=== PATIENT | female | born 1955 | race Caucasian/White ===

== ENCOUNTER 2024-07-24 14:06 | Inpatient (IN) | payer OTHER, MEDICARE, SELFPAY ==
[2024-07-24] VITALS (16 sets, daily range): BP systolic 120–149; BP diastolic 51–93; BMI 30.4
--- NOTE | 2024-07-24 10:46 | ED.GENMED ---
History of Present Illness
General
Chief Complaint: Chest Pain
Source: patient
Exam Limitations: none
Time Seen by Provider: 07/24/24 10:45
History of Present Illness
History of Present Illness:
68-year-old female relatively sudden onset of chest pain to the neck and arms. Started at 9 AM. Was in her kitchen. Was severe at that time. Had a brief episode days ago that lasted 5 minutes. Some nausea and shortness of breath with it.
Symptoms have mostly resolved. She did take a full aspirin at home. Currently near asymptomatic
Past History
Past History
ED Past Medical History: CVA, Hypercholesterolemia and Hypothyroidism
ED Past Surgical History: Orthopedic
Social History
Tobacco: Non-smoker
Alcohol: None
Drug: None
Living: with family
Review of Systems
Review of Systems
All Other Systems: Not applicable
Constitutional: Denies fever or chills
Cardiac: Denies syncope
ABD/GI: Denies abdominal pain
Phy Exam
Physical Exam
Physical Exam:
GENERAL: Alert and oriented in no apparent distress
EYE: Orbits normal.
NECK: Supple, no significant adenopathy.
ENT: Pharynx without erythema
CARDIAC: Regular rate and rhythm without any obvious murmurs.
LUNGS: Clear breath sounds,normal
ABDOMEN: Soft, without focal tenderness or distention
NEUROLOGICAL: Alert and oriented , grossly non-focal
SKIN: Warm and dry, no rash or lesion, no discoloration, skin intact.
MUSCULOSKELETAL: No edema,no deformity.Good color
PSYCH: Normal and appropriate interaction.
Scores
Heart Score for Chest Pain Patients
STEMI patient?: No
History: Highly Suspicious
ECG: Significant ST-Depression
Age: >/= 65 years
Risk Factors: 1 or 2 Risk Factors
Troponin: </= Normal Limit
Heart Score for Chest Pain Patients: 7
Heart Score Risk: 72.7 % MACE over next 6 weeks
Course
Orders/Labs/Results
Orders:
Orders
07/24/24
Electrocardiogram (*1) Stat
Comment: ALREAY DONE
07/24/24 10:17
Electrocardiogram (*1) Urgent
Reason for Study: Chest Pain
EKG- Treatment ONCE
07/24/24 10:47
Cardiac Monitoring- Treatment ONCE
IV Insert/Care/Rem.- Treatment PRN
Pulse Ox/cont/shift [RESP] Stat
Quantity: 1
07/24/24 10:53
EKG [Electrocardiogram (*1)] Urgent
Reason for Study: Chest Pain
EKG- Treatment ONCE
07/24/24 10:54
CR Chest Portable - 1 View Urgent
Comment:
Reason For Exam: cp
Reason Study Needs to be Portable: Patient Unstable
07/24/24 11:10
PTT Urgent
Comment: Obtain baseline before beginning heparin infusion if not already collected
07/24/24 11:14
Complete Blood Count/With Diff Urgent
Comprehensive Metabolic Panel Urgent
Lipase Urgent
Troponin I Urgent
07/24/24 11:50
Heparin 4,000 units IV NOW STA
07/24/24 11:[address] Non Medication Order As Directed
Physician Order: PTT 6 hours after initial start of Heparin infusion
Above order entered?: Yes
07/24/24 12:00
Heparin 19611 Units/250 ml 25,000 units in 250 ml IV PER PROTOCOL
Weight to be used for heparin protocol in kilograms (kg):: 75.296
Protocol:: Cardiac Tx/Acute Coronary
PTT Goal Range to be used:: PTT 73 to 111 seconds
Order type:: Initial
INITIAL Infusion Dose (UNITS/KG/hr) & then follow protocol:: 12 units/kg/hr
Infusion Dose in UNITS/hr & then follow protocol (UNITS/hr):: 900
INFUSION RATE in mL/hr & then follow protocol (mL/hr):: 9
PTT less than or equal to 64 seconds:: Increase rate by 200 units/hr (+ 2 mL/hr)
PTT 64.1 to 72.9 seconds:: Increase rate by 100 units/hr (+ 1 mL/hr)
PTT 73 to 111 seconds:: Target Range. No change in rate.
PTT 111.1 to 130.9 seconds:: Decrease rate by 100 units/hr (- 1 mL/hr)
PTT 131 to 199.9 seconds:: HOLD for 1 hr. Then decrease rate by 200 units/hr (- 2 mL/hr)
PTT greater than or equal to 200 seconds:: HOLD for 2 hrs & Notify Provider. Then decrease by 200 units/hr (-
2 mL/hr)
Lab follow-up:: Each change, PTT q6h until 2 consecutive are therapeutic. Then PTT
daily.
07/24/24 12:39
Echo 2D MMode Color/Doppler Urgent
Reason for Study: CP
07/24/24 12:58
Admit/Transfer Patient As Directed
Co-Sign Provider:
Level of Care: Inpatient admission
Assign to:: IVU
Physician / Group: Mirsky/Hospitalist
Diagnosis: Acute Coronary Syndrome
Reason for Hospitalization: Unstable Angina
Expected length of stay greater than two midnights?: Yes
ELOS- Estimated Length of Stay in days: 3
I certify the patient meets the requirements for IP care: Yes
PRN Pain Medication Management As Directed
May give lesser potent ordered pain med per pt: Yes
preference::
Protocol:: Medication orders for pain may be administered in a
manner that supports deferring to patient preference
when the pt is:
- Requesting an ordered lesser potent pain medication.
Least to most potent pain medications are defined
as: acetaminophen < NSAID < tramadol < opioids
(morphine, oxycodone, hydromorphone).
- Requesting a lesser dose of the same medication IF
ORDERED.
- Requesting a less intrusive route of administration
if both routes are prescribed by the provider (PO <
IV).
07/24/24 13:02
Code Status As Directed
Resuscitation Status: Full Code
07/24/24 18:10
PTT Urgent
Abnormal Lab Results
07/24/24
11:14
Hgb 17.2 H g/dL
(12.0-16.0)
Hct 48.5 H %
(37.0-47.0)
MCH 32.6 H pg
(27.0-31.0)
Absolute Lymphs (auto) 1.1 L 10^3/uL
(1.2-3.4)
Absolute Monos (auto) 1.1 H 10^3/uL
(0.1-0.6)
Lymphocytes % 15.2 L %
(20.5-51.1)
Monocytes % 15.5 H %
(1.7-9.3)
BUN 23 H mg/dl
(7-17)
Glucose 156 H mg/dl
(70-99)
AST 100 H U/L
(14-36)
ALT 106 H U/L
(0-35)
Alkaline Phosphatase 145 H U/L
(38-126)
07/24/24 11:14
07/24/24 11:14
Vital Signs
Initial and Last Documented VS:
Initial Vital Signs
Temp Pulse Resp BP Pulse Ox
97.8 F 86 18 149/93 99
07/24/24 10:26 07/24/24 10:26 07/24/24 10:26 07/24/24 10:26 07/24/24 10:26
Last Documented Vital Signs
Temp Pulse Resp BP Pulse Ox
98.2 F 93 13 130/78 96
07/24/24 14:21 07/24/24 14:00 07/24/24 14:00 07/24/24 14:00 07/24/24 14:00
MDM/Problems Addressed
Differential Diagnosis Includes:
Patient symptoms are fairly concerning for cardiac ischemia. EKG done during symptoms has some inferior lateral changes. Now that she is essentially asymptomatic EKG was repeated and is normalized. Warrants admission and cardiac involvement.
They were contacted. Highly doubt pulmonary emboli or dissection
*Pulse Oximetry
Patient hypoxic: no
*EKG
Interpreted by ED Provider?: Yes
Interpretation: abnormal
Comparison EKG: changes noted
Heart Rate: 86
Rate: normal
Rhythm: sinus
[place]: normal axis
Interval: normal interval
QRS Pattern: normal QRS
Ischemia: T-wave inversion
*Critical Care Note
Total Time (30-74mins, 75-104mins- exclusive of procedures): Not Applicable
Data Reviewed
Review of Other/Old Records Reveals: Labs, Records and Testing
Update Note
Update Note:
Patient is remained stable. LFTs mildly elevated. Admits to 2-5 drinks per day.
ED Attending Note
-
Portions of this chart may have been created with voice recognition software.� Occasional wrong word or��sound alike� substitutions may have occurred due to the inherent limitations of voice recognition software.
Discharge Plan
Departure
Patient Disposition: Admit
Date of Disposition: 07/24/24
Time of Disposition: 11:53
Presentation/result/management discussed w/ accepting MD/DO: Cardiology
Discharge Problem:
Unstable angina
Interventions
Interventions:
*Risk Screen - Suicide Last Done: 07/24/24 10:26
*General Assessment Last Done: 07/24/24 10:26
*Neglect/Abuse Screening Last Done: 07/24/24 10:26
*ED- Fall Risk Assessment Last Done: 07/24/24 11:19
*ED COVID-19 Vaccine History Last Done: 07/24/24 11:22
ED- Cardiac Assessment Last Done: 07/24/24 11:16
[2024-07-24 11:22] LABS: % Eosinophils 1.7 % (0-6); % Immature Granulocytes 0.4 % (0-0.5); % Lymphocytes 15.2 % (20.5-51.1); % Monocytes 15.5 % (1.7-9.3); % Neutrophils 66.2 % (42.2-75.2); Absolute Basophils 0.1 10^3/uL (0-0.2); Absolute Eosinophils 0.1 10^3/uL (0-0.7); Absolute Lymphocytes 1.1 10^3/uL (1.2-3.4); Absolute Monocytes 1.1 10^3/uL (0.1-0.6); Absolute Neutrophils 4.6 10^3/uL (1.4-6.5); Hematocrit 48.5 % (37.0-47.0); Hemoglobin 17.2 g/dL (12.0-16.0); Mean Corp Hgb Conc. 35.5 g/dL (33.0-37.0); Mean Corpuscular Hgb 32.6 pg (27.0-31.0); Mean Corpuscular Volume 91.9 fL (81.0-99.0); Mean Platelet Volume 9.2 fL (7.4-10.4); Nucleated Red Blood Cells % 0 %; Platelet Count 272 10^3/uL (130-400); Red Blood Cell Count 5.28 10^6/uL (4.20-5.40); Red Cell Dist. Width 12.7 % (11.5-14.5)
[2024-07-24 11:36] LABS: ALT (SGPT) 106 U/L (0-35); AST (SGOT) 100 U/L (14-36); Albumin 4.4 g/dl (3.5-5.0); Alkaline Phosphatase 145 U/L (38-126); Blood Urea Nitrogen 23 mg/dl (7-17); Calcium 10.1 mg/dl (8.4-10.2); Carbon Dioxide 25 mmol/L (22-30); Chloride 104 mmol/L (98-107); Estimated Creatinine Clearance 83 ml/min; Glucose 156 mg/dl (70-99); Lipase 175 U/L (23-300); Sodium 141 mmol/L (135-145); Total Bilirubin 0.9 mg/dl (0.2-1.3); Total Protein 7.3 g/dl (6.3-8.2); eGFR > 60.00
[2024-07-24] MEDS: HEPARIN 25000 UNITS/250 ML IV (12:10)
[2024-07-24] MEDS: HEPARIN 4000 UNITS IV (12:10)
--- NOTE | 2024-07-24 12:16 | CON.CAR ---
Addendum entered and electronically signed by Phan Light MD 07/24/24 13:18:
I saw and examined the patient.
The MOBILE HEAVY EQUIPMENT OPERATOR or PA's note was reviewed and I agree with the note.
Comment: General: Well developed, well nourished in NAD.
Neck: Supple, no JVD, HJR, carotids +2 B/L, no bruits bilaterally.
Heart: Non displaced PMI, RRR, no murmurs, No S3, S4, no rubs.
Lungs: Clear to auscultation bilaterally, no wheeze, rhonchi, rubs bilaterally,
normal expiratory phase.
Abdomen: Normal bowel sounds, soft, non-tender, non-distended.
Extremities: No clubbing, cyanosis or edema bilaterally.
Neuro: Grossly nonfocal, awake, alert and oriented x3.
Belkys has a history of CVA in 2010, hypertension, diabetes, lipidemia, hypothyroidism, daily alcohol use. She presented with complaints of chest discomfort. Of note she has had neck discomfort recently with exertion. Today she was carrying
birdseed and developed chest discomfort. The discomfort lasted 20 to 30 minutes and has resolved. ECG with possible inferior ST-T wave changes but normalized.
She is story consistent with unstable angina. Will arrange for cardiac catheterization. Explained risk and benefits of catheterization and stenting in detail and she agrees to proceed. Discussed with , ER doc, hospitalist. Continue IV
heparin.
Original Note:
Consultation
Consultation Request
Date/Time Consultation Performed: 07/24/24
Requesting Provider: Dr. Bailey
Performing Provider: Lakesha Ritchie PA-C for Dr. Light
Reason for Consultation: CP
Medical History
-
Chief Complaint: CP
History of Present Illness:
Patient is a 68 yo F with PMH of CVA in 2010, HTN, HLD, DM2, hypothyroidism, history of B/L rotator cuff repair, daily ETOH use who presented to with complaints of chest discomfort. She reports around 9AM as she was making a cup of coffee she
noted onset of R neck discomfort followed by significant chest pressure. She reports pain in both of her arms as well as N/V, chills and diaphoresis. She reports taking 81mg asa daily however with the discomfort this morning put 325mg asa under her
tongue. She reports her discomfort is now significantly improved, with only mild R neck discomfort. She states over the last week or so she did have several episodes of transient R neck discomfort lasting several minutes, however then resolved. The
episode today she relays was much more severe. Initial trop 0.02. EKG SR with NSSTS. She has noted to have elevated LFTs, which appear chronic on review of prior blood work. Lipase was 175. Denies abd pain.
PMH:
HTN
HLD
DM2
CVA in 2010
Hypothyroidism
History of B/L rotator cuff repair
Daily ETOH use
Past Medical History
Past Medical History: Other (in HPI)
Social History
Tobacco: Non-Smoker
Alcohol: Daily (3-5 drinks daily)
Personal:
Living: With Family
Employment: Retired
Family History
Family History: CAD (in father)
Allergies / Home Medications
Allergy/AdvReac Type Severity Reaction Status Date / Time
No Known Allergies Allergy Unverified 07/24/24 10:26
�Medication �Instructions �Recorded �Confirmed �Type
cholecalciferol (vitamin D3) 1,250 1,250 mcg PO DAILY Supplement 12/16/20 07/24/24 History
mcg (50,000 unit) capsule
loratadine 5 mg-pseudoephedrine ER 1 tab PO DAILY Allergies 12/16/20 07/24/24 History
120 mg tablet,extended release,12hr
aspirin 81 mg chewable tablet 81 mg PO DAILY 12/17/20 07/24/24 Rx
amlodipine 5 mg tablet 5 mg PO DAILY 07/24/24 07/24/24 History
coenzyme Q10 100 mg capsule (Co 100 mg PO DAILY 07/24/24 07/24/24 History
Q-10)
empagliflozin 25 mg tablet 25 mg PO DAILY 07/24/24 07/24/24 History
(Jardiance)
levothyroxine 125 mcg tablet 125 mcg PO DAILY 07/24/24 07/24/24 History
melatonin 3 mg tablet 3 mg PO HS 07/24/24 07/24/24 History
meloxicam 15 mg tablet 15 mg PO DAILY LOWER BACK PAIN 07/24/24 07/24/24 History
rosuvastatin 5 mg tablet 5 mg PO DAILY 07/24/24 07/24/24 History
valacyclovir 500 mg tablet 1,000 mg PO BIDPRN PRN [place]DS[place] 07/24/24 07/24/24 History
zolpidem 10 mg tablet 10 mg PO HS 07/24/24 07/24/24 History
Review of Systems
-
History Source: Patient and Family
All other systems: Negative unless noted
Physical Exam
Vital Signs
Temp Pulse Resp BP Pulse Ox
97.8 F 81 17 125/51 95
07/24/24 10:26 07/24/24 11:00 07/24/24 11:00 07/24/24 11:00 07/24/24 11:00
Lab Results
07/24/24 11:14
07/24/24 11:14
Troponin I 0.020 ng/ml 07/24/24 11:14
Physical Exam
General: No Apparent Distress and Comfortable
HEENT: Normocephalic, Anicteric and Moist Mucous Membranes
Respiratory: Clear and Non Labored Respirations
Cardiac: S1/S2 and Regular Rhythm
GI: Soft, Non Tender, Non Distended and Normal Bowel Sounds
Musculoskeletal: No Clubbing, No Cyanosis and No Edema
Skin: Warm and Dry
Neuro: AO x 3
Impression / Plan
-
PCP: Dr. Crawford
Primary Ranch Hand Supervisor: none prior to admission
Assessment:
Presentation with CP, concern for ACS
Elevated LFTs, chronic
HTN
HLD
DM2
CVA in 2010
Hypothyroidism
History of B/L rotator cuff repair
Daily ETOH use
Echo 12/16/2020: EF 65 to 70%, hypokinesis noted in basal inferoseptum, mild concentric LVH, trace MR
Plan:
-Patient presents with significant chest discomfort. Initial trop 0.02.
-took 324mg asa this AM. chronically on 81mg daily as OP
-currently with mild residual R neck discomfort
-EKG SR with NSSTS
-CXR without acute abnormality
-ER starting IV heparin
-check urgent echo, last from 2020 as above
-NPO for cardiac cath today. procedure reviewed with patient and at bedside and they are agreeable to proceed. patient last ate ~9AM.
-further recs based on results of cath
-follow LFTs, appear to be chronically elevated. requested records from PCP office. on statin as OP. also with daily ETOH use. lipase was WNL.
-ETOH cessation. monitor for withdrawal
-d/w ER nursing. d/w tag and label cutter
Data Reviewed
-
EKG: Tracing Personally Visualized and interpreted
Radiology: Report Reviewed by me
Medical Tests (Nuc Med, Echo etc): Report Reviewed by me
Labs: Labs Reviewed by me
Old Records: Reviewed
[2024-07-24 12:20] LABS: APTT 27.3 Sec (23.4-35.0)
--- NOTE | 2024-07-24 12:50 | W.PN.HOSP.TC ---
Today's Communication/Plan
-
cardio consult
Assessment / Plan
Assessment / Plan
Chest pain onset ~9AM which drinking coffee in kitchen.
Also had neck pain with exertion, would last <5 minutes and not as severe
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
Etoh
3-5 glasses of wine per day, never in withdrawal symptoms if did not drink
Cigs
short term smoking as teenager
P: cardio consult
MSAS protocol
potential heart cath deferred to cardio
full code
see dictated note
Anticipated Discharge: 24 - 48 hours
Subjective/Interval History
-
Date of Service: July 24, 2024
20 minutes chest pain this morning at rest, resolved on own by time reached ER
Objective Data
-
Labs:
Laboratory Results
07/24/24 07/24/24 07/24/24
11:10 11:14 18:10
WBC 7.0
Hgb 17.2 H
Hct 48.5 H
Plt Count 272
APTT 27.3 Pending
Sodium 141
Potassium 4.0
Chloride 104
Carbon Dioxide 25
BUN 23 H
Creatinine 0.6
Glucose 156 H
Calcium 10.1
Total Bilirubin 0.9
AST 100 H
ALT 106 H
Alkaline Phosphatase 145 H
Vital Signs:
Vital Signs
Temp Pulse Resp BP Pulse Ox
97.8 F 93 9 135/81 93
07/24/24 10:26 07/24/24 12:00 07/24/24 12:00 07/24/24 12:00 07/24/24 12:00
Review of Systems
-
History Source: Patient and Family ( at bedside)
Constitutional: Denies Fever
EENT: Reports No Symptoms Reported
Respiratory: Reports No Symptoms; Denies Cough or Trouble Breathing
Cardiac: Reports No Symptoms and Chest Pain (earlier today, now resolved)
Abdomen/GI: Reports No Symptoms; Denies Abdominal Pain
Breast: Reports No Symptoms
Genitourinary: Reports No Symptoms
Musculoskeletal: Reports No Symptoms
Physical Exam
-
General: Well Developed, Well Nourished and No Apparent Distress
HEENT: Normocephalic, Atraumatic and Moist Mucous Membranes
Respiratory: Clear to Auscultation; Negative Wheezes, Rales or Rhonchi
Cardiac: Regular Rhythm and S1/S2
GI: Nontender and Nondistended
Genito-urinary: No Costovertebral Tender
Musculoskeletal: No Clubbing, No Cyanosis and No Edema
Skin: Warm and Dry
Neuro: Awake, Alert and Oriented
--- NOTE | 2024-07-24 14:12 | CARDSERVDEF ---
Echocardiogram with Definity completed after protocol screening completed. Allergies verified.
Patent IV site: _Right antecubital site clear____
IV site flushed with 0.9% NaCl pre and post administration.
Diluted bolus method utilized to enhance visualization of ventricular christopher.
Total volume given: __2__ mL
Patient tolerated all procedures well without complications.
--- NOTE | 2024-07-24 14:29 | CM ---
Patient seen in ED. ran home to care of dog. Patient states that she lives in a ranch style home with . Patient has a walking stick at home and a wheelchair that she does not use. Patient stated that her PCP is Dr. Crawford and she uses
[facility] [address] in [place]. Patient plan for discharge home with no needs. CM will continue to follow for discharge planning needs.
Plan; home with no needs vs home with VN
--- NOTE | 2024-07-24 16:18 | CM ---
Addendum entered by Janay Farley RN 07/24/24 16:21:
It is in stock at the patient[facility]
Original Note:
Pricing on Brilinta 90mg BID through the patient's [employer], ID# [id number], is covered under the plan at $25 for a 30 day supply
[2024-07-24 16:22] LABS: ACT-LR - POC 339 Seconds (116-155)
[2024-07-24 16:49] LABS: ACT-LR - POC 348 Seconds (116-155)
--- NOTE | 2024-07-24 17:11 | ITS.CL.CATH ---
Waste Minimization Technician - Catheterization
Cardiac Catheterization
Procedure Report:
LEFT HEART CATH AND CORONARY INTERVENTION
Date of Procedure: July 24, 2024
Referring: Dr. Phna Light
PROCEDURES:
1. Left heart catheterization with coronary and single-plane left ventriculography
2. Successful stenting of the proximal to mid LAD with placement of a 3.5 x 26 mm Piyush stent that was implanted at nominal pressures and postdilated to high pressures with a 3.75 mm noncompliant balloon
INDICATION: This is a 68-year-old female who presented to [facility] following the onset of right neck and chest discomfort. Her symptoms have been occurring intermittently over the past several days. Her echocardiogram was notable for
anteroseptal, mid anterior and apical hypokinesis with an estimated ejection fraction of 40-45%. She is now referred for coronary angiography.
ACCESS: Right radial artery, 6 [place] Ze[place]ander sheath
HEMODYNAMICS (mmHg):
AO (s/d, m) : 121/78, 89
LV (s/d) : 130/1
LVEDP : 21
CORONARY FINDINGS
Dominance: Right
LEFT MAIN: Normal
LEFT ANTERIOR DESCENDING: The LAD arises normally from the left main and runs in the anterior interventricular groove. The first diagonal branch arises proximally from the LAD and is a rather small caliber vessel. The second diagonal branch
bifurcates very proximally and has a 50% proximal stenosis. The mid LAD between the 1st and 2nd diagonal branches has a hazy eccentric 85% stenosis. The mid to distal LAD has minor irregularities but no additional focal obstructive stenosis
CIRCUMFLEX: The circumflex is a medium caliber nondominant vessel. OM1 has a 50% proximal stenosis that is a moderate caliber vessel. The circumflex terminates in a small OM 2
RIGHT CORONARY: The right coronary artery is a medium caliber dominant vessel with mild irregularities over its course
VENTRICULOGRAPHY: Left ventriculography is performed in LAY projection. The digital single-plane left ventricular ejection fraction is visually estimated at 40% with anterolateral and apical hypokinesis
ANGIOPLASTY PROCEDURE DETAIL: Upon review of the diagnostic catheterization films the decision was made to proceed with percutaneous revascularization of the high-grade stenosis in the mid LAD. A 180 mg loading dose of ticagrelor was given.
Intravenous heparin was administered and the ACT was monitored throughout the procedure.
The origin of the left main was cannulated with a 6 [place] XB 3.0 guide catheter and a long BMW guidewire was advanced across the high-grade mid LAD stenosis and into the distal vessel. A short BMW guidewire was advanced into the bifurcating second
diagonal branch. Balloon predilation was performed with a 2.25 x 15 mm trek balloon and was followed by placement of a 3.5 x 26 mm Piyush stent that was positioned with angiographic and fluoroscopic guidance. The stent was implanted at nominal
pressures and postdilated to high pressures with a 3.75 mm noncompliant balloon at nominal pressures distally and 18 to 20 jerry from the mid to proximal portion of the stent
SEDATION: 57 minutes of procedural sedation was utilized. An independent medical records coder was present to assist with and help manage the patient's level of consciousness and physiologic status
RADIATION SUMMARY: Fluoro Time (min): 11.3, Dose (mGy): 1080, DAP (Gy.cm2) : 84.5
CONCLUSIONS
1. Successful stenting of the mid LAD with a 3.5 x 26 mm Piyush stent that was implanted at nominal pressures and postdilated to high pressures with a 3.75 mm noncompliant balloon
2. Mildly reduced LV systolic function estimated at 40% with anterolateral and apical hypokinesis noted
RECOMMENDATIONS
1. Uninterrupted dual antiplatelet therapy for 1 year
2. High intensity statin
3. Guideline directed medical therapy for hypertension
4. Avoid alcohol
Copy to: Dr. Phan Light
[2024-07-24] MEDS: D5/0.45%NACL 1000 IV (18:01)
[2024-07-24] MEDS: CRESTOR 20 MG PO (18:04)
[2024-07-24 18:11] LABS: Glucose - Point of Care 134 mg/dl (70-99)
[2024-07-24 18:16] LABS: INR 1.12; PT 14.7 Sec (11.4-14.6)
[2024-07-24 18:18] LABS: ALT (SGPT) 101 U/L (0-35); AST (SGOT) 104 U/L (14-36); Albumin 4.3 g/dl (3.5-5.0); Alkaline Phosphatase 152 U/L (38-126); Blood Urea Nitrogen 21 mg/dl (7-17); Calcium 9.5 mg/dl (8.4-10.2); Carbon Dioxide 23 mmol/L (22-30); Chloride 104 mmol/L (98-107); Estimated Creatinine Clearance 83 ml/min; GGTP 170 U/L (12-43); Glucose 137 mg/dl (70-99); Magnesium 1.9 mg/dl (1.6-2.3); Phosphorus 3.5 mg/dl (2.5-4.5); Potassium 3.8 mmol/L (3.5-5.1); Sodium 138 mmol/L (135-145); Total Bilirubin 0.9 mg/dl (0.2-1.3); Total Protein 7.3 g/dl (6.3-8.2); eGFR > 60.00
[2024-07-24 18:19] LABS: Alcohol None Detected
[2024-07-24 18:24] LABS: B-Hydroxybutyrate 2.01 mmol/L (0.02-0.27)
--- NOTE | 2024-07-24 18:26 | PTCARENOTE ---
pt back from ccl. right radial is cdi. 02 95% RA. pt c/o cp 06/01, unchanged from ccl. pt sr on the monitor, hr in the 80s, vss. Pt educated on plan of care and pt verbalized understanding. call la within reach.
[2024-07-24 18:37] LABS: APTT > 200 Sec (23.4-35.0)
--- NOTE | 2024-07-24 19:11 | PTCARENOTE ---
Received pt @ change of shift. AAOx3. VSS. Right radial site with Rband still intact-- 11mL of air in band. Soft to touch, normal radial pulse. Discussed removing air and not using hand to push self up with. Pt verbalized understanding. Call la
within reach.
[2024-07-24] MEDS: THIAMINE INJECTION 200 MG IV (20:10)
[2024-07-24] MEDS: TOPROL XL 25 MG PO (20:10)
[2024-07-24 22:07] LABS: Glucose - Point of Care 121 mg/dl (70-99)
[2024-07-24] MEDS: AMBIEN 10 MG PO (22:15)
[2024-07-24] MEDS: MELATONIN 3 MG PO (22:16)
[2024-07-24 22:42] LABS: Urine Albumin Negative (Neg - Trace); Urine Bilirubin Negative (Negative); Urine Character Clear (Clear); Urine Color Yellow; Urine Glucose 4+ (Negative); Urine Ketone 3+ (Negative); Urine Leukocyte Negative (Negative); Urine Nitrite Negative (Negative); Urine Occult Blood Negative (Negative); Urine Urobilinogen Negative (Neg - 1+)
[2024-07-24 22:50] LABS: Amphetamines Negative (Negative); Barbiturates Negative (Negative); Benzodiazepines Positive (Negative); Buprenorphine Negative (Negative); Cocaine Negative (Negative); Marijuana Negative (Negative); Methadone Negative (Negative); Methamphetamines Negative (Negative); Opiates Negative (Negative); Phencyclidine Negative (Negative); Tricyclic Antidepressants Negative (Negative)
[2024-07-24 23:14] LABS: Fentanyl, Urine Negative (Negative)
[2024-07-25 02:10] VITALS: BP 123/72
[2024-07-25 02:28] LABS: Hematocrit 46.3 % (37.0-47.0); Hemoglobin 16.6 g/dL (12.0-16.0); Mean Corp Hgb Conc. 35.9 g/dL (33.0-37.0); Mean Corpuscular Hgb 32.3 pg (27.0-31.0); Mean Corpuscular Volume 90.1 fL (81.0-99.0); Mean Platelet Volume 9.1 fL (7.4-10.4); Platelet Count 277 10^3/uL (130-400); Red Blood Cell Count 5.14 10^6/uL (4.20-5.40); Red Cell Dist. Width 12.6 % (11.5-14.5); White Blood Cell Count 10.5 10^3/uL (4.8-10.8)
[2024-07-25 02:51] LABS: Blood Urea Nitrogen 16 mg/dl (7-17); Carbon Dioxide 20 mmol/L (22-30); Chloride 106 mmol/L (98-107); Estimated Creatinine Clearance 83 ml/min; Glucose 134 mg/dl (70-99); HDL Cholesterol 97 mg/dl; LDL Cholesterol, Calculated 62 mg/dl; Potassium 3.6 mmol/L (3.5-5.1); Sodium 138 mmol/L (135-145); Total Cholesterol 206 mg/dl (50-199); Triglyceride 239 mg/dl (10-149); Very Low Density Lipoprotein 47 mg/dl (0-30); eGFR > 60.00
[2024-07-25] MEDS: SYNTHROID 125 MCG PO (05:29)
[2024-07-25 07:45] VITALS: BP 119/82
[2024-07-25 07:48] LABS: Glucose - Point of Care 140 mg/dl (70-99)
[2024-07-25] MEDS: CLARITIN 10 MG PO (08:03)
[2024-07-25] MEDS: TOPROL XL 25 MG PO ×2 (08:04→20:30)
[2024-07-25] MEDS: BRILINTA 90 MG PO ×2 (08:04→20:30)
[2024-07-25] MEDS: FARXIGA 10 MG PO (08:04)
[2024-07-25] MEDS: THIAMINE INJECTION 200 MG IV ×2 (08:04→20:30)
[2024-07-25] MEDS: LOW STRENGTH ASPIRIN 81 MG PO (08:04)
[2024-07-25] MEDS: ZESTRIL 2.5 MG PO (08:04)
[2024-07-25] MEDS: VITAMIN D3 (cholecalciferol) 50 MCG PO (08:04)
[2024-07-25] MEDS: FOLVITE 1 MG PO (08:05)
--- NOTE | 2024-07-25 08:38 | W.PN.CARDCBS ---
Today's Communication / Plan
-
Stable cardiology status
Hopeful discharge on 07/26
Recheck LFTs on higher Crestor dose
Continue to track troponin
Impression / Plan
-
PCP: Dr. Crawford
Primary Animal Ecologist: none prior to admission
Assessment:
Non-STEMI/peak troponin 3.7
Elevated LFTs, chronic
HTN
HLD
DM2
CVA in 2010
Hypothyroidism
History of B/L rotator cuff repair
Daily ETOH use
Echo 12/16/2020: EF 65 to 70%, hypokinesis noted in basal inferoseptum, mild concentric LVH, trace MR
Echocardiogram 07/24/2024: Ejection fraction 40 to 45%, mid anteroseptal, mid anterior, and apical akinesis
Catheterization 07/24/2024: Successful stenting of mid LAD with 3.5 x 26 mm Piyush stent, mildly reduced systolic function estimate ejection fraction 40% with anterolateral and apical hypokinesis
Plan:
She is doing very well at present
Troponin is at 3.7 and will continue to track
She should remain in hospital for another 24 hours.
Continue Brilinta, Toprol, lisinopril, Crestor, Farxiga
Recheck LFTs on higher Crestor dose
ETOH cessation. monitor for withdrawal
Discussed with primary service
Progress Note - Animal Ecologist
Subjective
Date of Service: July 25, 2024
No complaints
Objective
Labs:
07/25/24 02:19
07/25/24 02:19
Labs
Hgb 16.6 g/dL (12.0-16.0) H 07/25/24 02:19
Hct 46.3 % (37.0-47.0) 07/25/24 02:19
Plt Count 277 10^3/uL (130-400) 07/25/24 02:19
PT 14.7 Sec (11.4-14.6) H 07/24/24 17:54
INR 1.12 07/24/24 17:54
APTT > 200 Sec (23.4-35.0) H* 07/24/24 17:54
APTT Cancelled 07/24/24 17:54
Sodium 138 mmol/L (135-145) 07/25/24 02:19
Potassium 3.6 mmol/L (3.5-5.1) 07/25/24 02:19
BUN 16 mg/dl (7-17) 07/25/24 02:19
Creatinine 0.4 mg/dL (0.6-1.0) L 07/25/24 02:19
Glucose 134 mg/dl (70-99) H 07/25/24 02:19
Troponins
07/24/24 07/24/24 07/25/24
11:14 17:54 02:19
Troponin I 0.020 1.950 H* D 3.670 H*
Vital Signs and I&O:
Vital Signs
Temp Pulse Resp BP Pulse Ox
97.8 F 80 18 123/72 98
07/25/24 07:49 07/25/24 02:10 07/25/24 07:49 07/25/24 02:10 07/25/24 07:49
Vital Signs
Temp Pulse Resp BP Pulse Ox
97.8 F 80 18 123/72 98
07/25/24 07:49 07/25/24 02:10 07/25/24 07:49 07/25/24 02:10 07/25/24 07:49
Intake & Output
07/23/24 07/24/24 07/25/24 07/26/24
06:59 06:59 06:59 06:59
Intake Total 480 / 480
Balance 480 / 480
Physical Exam
Physical Exam
General: Well developed, well nourished in NAD.
Neck: Supple, no JVD, HJR, carotids +2 B/L, no bruits bilaterally.
Heart: Non displaced PMI, RRR, no murmurs, No S3, S4, no rubs.
Lungs: Clear to auscultation bilaterally, no wheeze, rhonchi, rubs bilaterally,
normal expiratory phase.
Extremities: No clubbing, cyanosis or edema bilaterally.
Neuro: Grossly nonfocal, awake, alert and oriented x3.
[2024-07-25 09:00] LABS: Glycohemoglobin (HgbA1c) 5.7 % (4.0-5.6)
[2024-07-25 10:36] VITALS: BMI 30.4
--- NOTE | 2024-07-25 13:26 | W.PN.HOSP.TC ---
Today's Communication/Plan
-
dc accuchecks
Assessment / Plan
Assessment / Plan
Chest pain onset ~9AM while drinking coffee in kitchen on day of admission
Also had neck pain with exertion, would last <5 minutes and not as severe
underwent cardiac cath with, as per Dr. Marino, 'successful stenting of the proximal to mid LAD with placement of a 3.5 x 26 mm [place] stent that was implanted at nominal pressures and postdilated to high pressures with a 3.75 mm noncompliant
balloon'on 07/24
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
Etoh
3-5 glasses of wine per day, never in withdrawal symptoms if did not drink. Long discussion with pt and . This is certainly too much alcohol consumption and she really needs to decrease consumption to <2 drinks per day at most. Voiced
understanding.
Cigs
short term smoking as teenager
Borderline DM with glu 121-140, though with a1c of 5.7%. Will dc accuchecks and sliding scale
P: cardio consult appreciated
MSAS protocol
full code
see dictated note
Anticipated Discharge: 24 - 48 hours
Subjective/Interval History
-
Date of Service: July 25, 2024
No chest pain, generally feels well
Objective Data
-
Labs:
Laboratory Results
07/25/24
02:19
WBC 10.5
Hgb 16.6 H
Hct 46.3
Plt Count 277
Sodium 138
Potassium 3.6
Chloride 106
Carbon Dioxide 20 L
BUN 16
Creatinine 0.4 L
Glucose 134 H
Calcium 10.0
Vital Signs:
Vital Signs
Temp Pulse Resp BP Pulse Ox
97.8 F 76 18 119/82 98
07/25/24 07:49 07/25/24 10:00 07/25/24 07:49 07/25/24 07:45 07/25/24 07:49
I&O
07/24/24 07/25/24 07/26/24
06:59 06:59 06:59
Intake Total 480 / 480 400 / 400
Balance 480 / 480 400 / 400
Review of Systems
-
History Source: Patient and Family ( at bedside)
Constitutional: Denies Fever
EENT: Reports No Symptoms Reported
Respiratory: Reports No Symptoms; Denies Cough or Trouble Breathing
Cardiac: Reports No Symptoms and Chest Pain (earlier today, now resolved)
Abdomen/GI: Reports No Symptoms; Denies Abdominal Pain
Breast: Reports No Symptoms
Genitourinary: Reports No Symptoms
Musculoskeletal: Reports No Symptoms
Physical Exam
-
General: Well Developed, Well Nourished and No Apparent Distress
HEENT: Normocephalic, Atraumatic and Moist Mucous Membranes
Respiratory: Clear to Auscultation; Negative Wheezes, Rales or Rhonchi
Cardiac: Regular Rhythm and S1/S2
GI: Nontender and Nondistended
Genito-urinary: No Costovertebral Tender
Musculoskeletal: No Clubbing, No Cyanosis and No Edema
Skin: Warm and Dry
Neuro: Awake, Alert and Oriented
[2024-07-25] MEDS: D5/0.45%NACL IV (13:45)
[2024-07-25 15:38] VITALS: BP 132/70
[2024-07-25] MEDS: CRESTOR 20 MG PO (17:31)
[2024-07-25 20:30] VITALS: BP 132/70
--- NOTE | 2024-07-25 21:11 | PTCARENOTE ---
Received pt @ change of shift. AAOx3. VSS stable. Right radial site CDI, no ecchymosis. Soft to touch. Discussed plan of care for evening. Pt verbalized understanding. Call la within reach.
[2024-07-25] MEDS: AMBIEN 10 MG PO (21:57)
[2024-07-25] MEDS: MELATONIN 3 MG PO (21:57)
[2024-07-25 22:01] VITALS: BP 135/78
[2024-07-26] MEDS: SYNTHROID 125 MCG PO (05:14)
[2024-07-26 05:16] VITALS: BP 118/86
--- NOTE | 2024-07-26 05:36 | PTCARENOTE ---
Pt had a restful and uneventful night.
[2024-07-26 06:02] LABS: ALT (SGPT) 74 U/L (0-35); AST (SGOT) 72 U/L (14-36); Albumin 4.1 g/dl (3.5-5.0); Alkaline Phosphatase 82 U/L (38-126); Blood Urea Nitrogen 22 mg/dl (7-17); Calcium 9.8 mg/dl (8.4-10.2); Carbon Dioxide 19 mmol/L (22-30); Chloride 108 mmol/L (98-107); Estimated Creatinine Clearance 83 ml/min; Glucose 115 mg/dl (70-99); Potassium 4.2 mmol/L (3.5-5.1); Sodium 139 mmol/L (135-145); Total Bilirubin 1.1 mg/dl (0.2-1.3); eGFR > 60.00
[2024-07-26 07:43] VITALS: BP 112/81
[2024-07-26] MEDS: THIAMINE INJECTION 200 MG IV (07:58)
[2024-07-26] MEDS: CLARITIN 10 MG PO (07:59)
[2024-07-26] MEDS: VITAMIN D3 (cholecalciferol) 50 MCG PO (07:59)
[2024-07-26] MEDS: ZESTRIL 2.5 MG PO (07:59)
[2024-07-26] MEDS: FARXIGA 10 MG PO (07:59)
[2024-07-26] MEDS: TOPROL XL 25 MG PO (07:59)
[2024-07-26] MEDS: FOLVITE 1 MG PO (07:59)
[2024-07-26] MEDS: BRILINTA 90 MG PO (07:59)
[2024-07-26] MEDS: LOW STRENGTH ASPIRIN 81 MG PO (07:59)
--- NOTE | 2024-07-26 10:33 | W.PN.CARDCBS ---
Today's Communication / Plan
-
Stable cardiology status for discharge
Impression / Plan
-
PCP: Dr. Crawford
Primary [employer] Admin: none prior to admission
Assessment:
Non-STEMI/peak troponin 3.7
Elevated LFTs, chronic
HTN
HLD
DM2
CVA in 2010
Hypothyroidism
History of B/L rotator cuff repair
Daily ETOH use
Echo 12/16/2020: EF 65 to 70%, hypokinesis noted in basal inferoseptum, mild concentric LVH, trace MR
Echocardiogram 07/24/2024: Ejection fraction 40 to 45%, mid anteroseptal, mid anterior, and apical akinesis
Catheterization 07/24/2024: Successful stenting of mid LAD with 3.5 x 26 mm [place] stent, mildly reduced systolic function estimate ejection fraction 40% with anterolateral and apical hypokinesis
Plan:
Stable cardiology status for discharge
Continue Brilinta, Toprol, lisinopril, Crestor, Farxiga
LFTs improved on higher Crestor dose and may be alcohol related
Follow-up will be arranged
Discussed with primary service and will check on cost of Brilinta
Progress Note - [employer] Admin
Subjective
Date of Service: July 26, 2024
No complaints
Objective
Labs:
07/25/24 02:19
07/26/24 05:21
Labs
Hgb 16.6 g/dL (12.0-16.0) H 07/25/24 02:19
Hct 46.3 % (37.0-47.0) 07/25/24 02:19
Plt Count 277 10^3/uL (130-400) 07/25/24 02:19
PT 14.7 Sec (11.4-14.6) H 07/24/24 17:54
INR 1.12 07/24/24 17:54
APTT > 200 Sec (23.4-35.0) H* 07/24/24 17:54
APTT Cancelled 07/24/24 17:54
Sodium 139 mmol/L (135-145) 07/26/24 05:21
Potassium 4.2 mmol/L (3.5-5.1) 07/26/24 05:21
BUN 22 mg/dl (7-17) H 07/26/24 05:21
Creatinine 0.5 mg/dL (0.6-1.0) L 07/26/24 05:21
Glucose 115 mg/dl (70-99) H 07/26/24 05:21
Troponins
07/24/24 07/24/24 07/25/24
11:14 17:54 02:19
Troponin I 0.020 1.950 H* D 3.670 H*
07/25/24
09:59
Troponin I 3.290 H*
Vital Signs and I&O:
Vital Signs
Temp Pulse Resp BP Pulse Ox
98.3 F 76 18 112/81 97
07/26/24 07:45 07/26/24 07:43 07/26/24 07:45 07/26/24 07:43 07/26/24 07:45
Vital Signs
Temp Pulse Resp BP Pulse Ox
98.3 F 76 18 112/81 97
07/26/24 07:45 07/26/24 07:43 07/26/24 07:45 07/26/24 07:43 07/26/24 07:45
Intake & Output
07/24/24 07/25/24 07/26/24 07/27/24
06:59 06:59 06:59 06:59
Intake Total 480 / 480 400 / 400
Balance 480 / 480 400 / 400
Physical Exam
Physical Exam
General: Well developed, well nourished in NAD.
Neck: Supple, no JVD, HJR, carotids +2 B/L, no bruits bilaterally.
Heart: Non displaced PMI, RRR, no murmurs, No S3, S4, no rubs.
Lungs: Scattered rhonchi
Extremities: No clubbing, cyanosis or edema bilaterally.
Neuro: Grossly nonfocal, awake, alert and oriented x3.
[2024-07-26 11:35] VITALS: BP 117/74
--- NOTE | 2024-07-26 12:26 | W.PN.HOSP.TC ---
Today's Communication/Plan
-
dc to home
Assessment / Plan
Assessment / Plan
Chest pain onset ~9AM while drinking coffee in kitchen on day of admission
Also had neck pain with exertion, would last <5 minutes and not as severe
underwent cardiac cath with, as per Dr. Marino, 'successful stenting of the proximal to mid LAD with placement of a 3.5 x 26 mm [place] stent that was implanted at nominal pressures and postdilated to high pressures with a 3.75 mm noncompliant
balloon'on 07/24
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
Etoh
3-5 glasses of wine per day, never in withdrawal symptoms if did not drink. Long discussion with pt and . This is certainly too much alcohol consumption and she really needs to decrease consumption to <2 drinks per day at most. Voiced
understanding.
Cigs
short term smoking as teenager
Borderline DM with glu 121-140, though with a1c of 5.7%. Will dc accuchecks and sliding scale
P: cardio consult appreciated
MSAS protocol
dc now
see dictated note
full code
see dictated note
Anticipated Discharge: Today
Subjective/Interval History
-
Date of Service: July 26, 2024
Feels well, no chest pain
Objective Data
-
Labs:
Laboratory Results
07/26/24
05:21
Sodium 139
Potassium 4.2
Chloride 108 H
Carbon Dioxide 19 L
BUN 22 H
Creatinine 0.5 L
Glucose 115 H
Calcium 9.8
Total Bilirubin 1.1
AST 72 H
ALT 74 H
Alkaline Phosphatase 82
Vital Signs:
Vital Signs
Temp Pulse Resp BP Pulse Ox
98.0 F 72 18 117/74 98
07/26/24 11:38 04/06/25 11:35 07/26/24 11:38 07/26/24 11:35 07/26/24 11:38
I&O
07/25/24 07/26/24 07/27/24
06:59 06:59 06:59
Intake Total 480 / 480 400 / 400
Balance 480 / 480 400 / 400
Review of Systems
-
History Source: Patient and Family ( at bedside)
Constitutional: Denies Fever
EENT: Reports No Symptoms Reported
Respiratory: Reports No Symptoms; Denies Cough or Trouble Breathing
Cardiac: Reports No Symptoms and Chest Pain (earlier today, now resolved)
Abdomen/GI: Reports No Symptoms; Denies Abdominal Pain
Breast: Reports No Symptoms
Genitourinary: Reports No Symptoms
Musculoskeletal: Reports No Symptoms
Physical Exam
-
General: Well Developed, Well Nourished and No Apparent Distress
HEENT: Normocephalic, Atraumatic and Moist Mucous Membranes
Respiratory: Clear to Auscultation; Negative Wheezes, Rales or Rhonchi
Cardiac: Regular Rhythm and S1/S2
GI: Nontender and Nondistended
Genito-urinary: No Costovertebral Tender
Musculoskeletal: No Clubbing, No Cyanosis and No Edema
Skin: Warm and Dry
Neuro: Awake, Alert and Oriented
--- NOTE | 2024-07-26 13:34 | PTCARENOTE ---
Pt up walking in halls without problem. Pt seen by Dr.Guarino susan Granda. Telemetry and IV device removed. Discharge instructions reviewed with pt and her regardind activity adn driving guidelines, medications and their possible side
effects, wound care, reporting cares and concerns and follow up appt's. Very good understanding taught back to RN. Pt escorted out via wheelchair and discharged to home.
--- NOTE | 2024-07-26 13:46 | W.DS.TRANS ---
DC Summary - Therapy Site Coordinator
-
Discharge Instructions:
Discharge Diagnosis/Procedures Angioplasty and stent to Left Anterior
Descending artery
Diet Low Cholesterol
Additional Diets minimize alcohol consumption to no more than 1-2
per day
Activity No strenuous activity
Driving Restrictions No driving for 24 hours
Bathing Restrictions OK to Shower
Other Services Cardiac Rehab
Instructions:
Stand-Alone Forms: DC Instructions- Cath/EP Lab
Changes to Home Medications: Yes
Discharge Medications:
DC Medications w/original date entered in [facility]
cholecalciferol (vitamin D3) 1,250 mcg (50,000 unit) capsule 1,250 mcg PO DAILY Supplement 12/16/20
aspirin 81 mg chewable tablet 81 mg PO DAILY 12/17/20
amlodipine 5 mg tablet 5 mg PO DAILY 07/24/24
coenzyme Q10 100 mg capsule (Co Q-10) 100 mg PO DAILY 07/24/24
empagliflozin 25 mg tablet (Jardiance) 25 mg PO DAILY 07/24/24
levothyroxine 125 mcg tablet 125 mcg PO DAILY 07/24/24
melatonin 3 mg tablet 3 mg PO HS 07/24/24
valacyclovir 500 mg tablet 1,000 mg PO BIDPRN PRN COLDSORE 07/24/24
zolpidem 10 mg tablet 10 mg PO HS 07/24/24
lisinopril 2.5 mg tablet 2.5 mg PO DAILY #30 tabs 07/26/24
loratadine 10 mg tablet 10 mg PO DAILY #30 tabs 07/26/24
metoprolol succinate 25 mg tablet,extended release 24 hr 25 mg PO BID #60 tabs 07/26/24
rosuvastatin 20 mg tablet 20 mg PO QPM #30 tabs 07/26/24
ticagrelor 90 mg tablet (Brilinta) 90 mg PO BID #60 tabs 07/26/24
Home Medication Changes
start Brilinta
Increase Crestor to 20 mg daily
start Toprol and Lisinopril
Change Claritin D to plain Claritin
Stop Mobic
Pending Results: No
== END 2024-07-26 13:25 | disposition home or self-care (01) | DRG 322 ==
LOC: IVU 14:06
PROVIDERS: Internal Medicine Interventional Cardiology; Nurse Practitioner; ADMITTING PHYSICIAN Internal Medicine; EMERGENCY PHYSICIAN Emergency Medicine; FAMILY PHYSICIAN Family Medicine; OTHER PHYSICIAN Internal Medicine Cardiovascular Disease
PROC: 4A023N7 Measurement of Cardiac Sampling and Pressure, Left Heart, Percutaneous Approach (ICD-10-PCS; 2024-07-24)
PROC: B2151ZZ Fluoroscopy of Left Heart using Low Osmolar Contrast (ICD-10-PCS; 2024-07-24)
PROC: B2111ZZ Fluoroscopy of Multiple Coronary Arteries using Low Osmolar Contrast (ICD-10-PCS; 2024-07-24)
PROC: 02703DZ Dilation of Coronary Artery, One Artery with Intraluminal Device, Percutaneous Approach (ICD-10-PCS; 2024-07-24)
DX: I21.4 Non-ST elevation (NSTEMI) myocardial infarction (principal); I10 Essential (primary) hypertension; E78.00 Pure hypercholesterolemia, unspecified; E11.9 Type 2 diabetes mellitus without complications; E03.9 Hypothyroidism, unspecified; Z86.73 Personal history of transient ischemic attack (TIA), and cerebral infarction without residual deficits; F10.90 Alcohol use, unspecified, uncomplicated; I25.10 Atherosclerotic heart disease of native coronary artery without angina pectoris; I34.81 Nonrheumatic mitral (valve) annulus calcification; Z79.82 Long term (current) use of aspirin; Z79.899 Other long term (current) drug therapy; Z82.49 Family history of ischemic heart disease and other diseases of the circulatory system
CPT/HCPCS: 71045; 80048; 80053; 80061; 80306; 80307; 81003; 82010; 82077; 82962; 82977; 83036; 83690; 83735; 84100; 84484; 85025; 85027; 85347; 85610; 85730; 93005; 93306; 93458; 94760; 96365; 96366; 99152; 99153; 99285; C1725; C1769; C1874; C1894; C9600; Q9957; Q9967

== ENCOUNTER → 2024-08-08 08:56 | Outpatient (REF) | payer OTHER, MEDICARE, SELFPAY | LOC: WDC 08:56 | PROVIDERS: ATTENDING PHYSICIAN Physician Assistant Medical | DX: Z12.31 Encounter for screening mammogram for malignant neoplasm of breast (principal) | CPT/HCPCS: 77063; 77067 ==

== ENCOUNTER 2024-08-17 10:50 | Outpatient (RCR) | payer OTHER, MEDICARE, SELFPAY | END 2024-08-17 23:59 | disposition home or self-care (01) | LOC: CRHB 10:50 | PROVIDERS: ATTENDING PHYSICIAN Internal Medicine Cardiovascular Disease; FAMILY PHYSICIAN Family Medicine | DX: I21.4 Non-ST elevation (NSTEMI) myocardial infarction (principal); Z95.5 Presence of coronary angioplasty implant and graft | CPT/HCPCS: 93798 ==

== ENCOUNTER → 2024-09-11 08:04 | Outpatient (REF) | payer OTHER, SELFPAY | LOC: RCS 08:04 | PROVIDERS: ATTENDING PHYSICIAN Physician Assistant; FAMILY PHYSICIAN Family Medicine; REFERRING PHYSICIAN Internal Medicine Cardiovascular Disease | DX: I25.10 Atherosclerotic heart disease of native coronary artery without angina pectoris (principal); I42.9 Cardiomyopathy, unspecified | CPT/HCPCS: 93306 ==

== ENCOUNTER 2024-09-18 09:42 | Outpatient (RCR) | payer OTHER, MEDICARE, SELFPAY | END 2024-09-18 23:59 | disposition home or self-care (01) | LOC: CRHB 09:42 | PROVIDERS: ATTENDING PHYSICIAN Internal Medicine Cardiovascular Disease; FAMILY PHYSICIAN Family Medicine | DX: I25.10 Atherosclerotic heart disease of native coronary artery without angina pectoris (principal); I21.4 Non-ST elevation (NSTEMI) myocardial infarction (principal); Z95.5 Presence of coronary angioplasty implant and graft; I25.2 Old myocardial infarction | CPT/HCPCS: 93797; 93798; G0422; G0423 ==

== ENCOUNTER 2024-09-30 09:51 | Outpatient (RCR) | payer OTHER, MEDICARE, SELFPAY | END 2024-10-02 14:24 | disposition home or self-care (01) | LOC: CRHB 09:51 | PROVIDERS: ATTENDING PHYSICIAN Internal Medicine Cardiovascular Disease; FAMILY PHYSICIAN Family Medicine | DX: I25.10 Atherosclerotic heart disease of native coronary artery without angina pectoris (principal); Z95.5 Presence of coronary angioplasty implant and graft; I25.2 Old myocardial infarction; I21.4 Non-ST elevation (NSTEMI) myocardial infarction | CPT/HCPCS: 93797; 93798 ==